=== PATIENT | male | born 1995 | race Caucasian/White ===

== ENCOUNTER 2021-11-20 23:59 | Emergency (ER) | payer OTHER ==
[2021-11-21] MEDS ORDERED: CLINDAMYCIN HC300 MG PO (02:30)
== END 2021-11-21 03:10 | disposition home or self-care (01) ==
LOC: ER1 23:59
DX: L02.511 Cutaneous abscess of right hand (principal); L03.011 Cellulitis of right finger; F17.200 Nicotine dependence, unspecified, uncomplicated
CPT/HCPCS: 10060; 64450; 87070; 87077; 87186; 87205; 96374; 99283

== ENCOUNTER 2022-04-24 09:35 | Emergency (ER) | payer OTHER ==
[~2022-04-24 09:35] MED LIST: CLINDAMYCIN HC300 MG PO
[2022-04-24 09:58] LABS: HEMOGLOBIN 13.6 gm/dl (14.0-17.5); RED BLOOD COUNT 4.77 M/UL (4.20-5.50); WHITE BLOOD COUNT 7.8 K/UL (4.5-11.0)
[2022-04-24 10:25] LABS: BUN/CREATININE RATIO 25 (0-10)
== END 2022-04-24 10:20 | disposition left against medical advice (07) ==
LOC: ER1 09:35
PROVIDERS: Family Medicine
DX: S70.212A Abrasion, left hip, initial encounter (principal); S60.811A Abrasion of right wrist, initial encounter; M54.50 Low back pain, unspecified; F17.200 Nicotine dependence, unspecified, uncomplicated; Z86.19 Personal history of other infectious and parasitic diseases; V29.9XXA Motorcycle rider (driver) (passenger) injured in unspecified traffic accident, initial encounter; Y92.410 Unspecified street and highway as the place of occurrence of the external cause
CPT/HCPCS: 70450; 70486; 71045; 71260; 72125; 72170; 73130; 80053; 83605; 85025; 85610; 85730; 99283; G0480; Q9967